=== PATIENT | female | born 1970 | race Two or more races ===

== ENCOUNTER → 2022-04-01 | Emergency (ER) | payer OTHER ==
[~2022-04-01] VITALS: Ht 167.6 cm; Wt 95.3 kg
[~2022-04-01] MED LIST: CYCL5TAB PO; HYDR-4209 PO; HYDROCODONE/APAP 5/325MG TABLET ONE; HYDROCODONE/APAP 5/325MG TABLET PO ONE; IBUP-1955 PO; IBUPROFEN 600 MG TABLET ONE; IBUPROFEN 600 MG TABLET PO ONE
--- NOTE | 2022-04-01 12:43 | NUR ---
Atif bandage applied to affected are. Extensive ACI given. Home w/family NAD. Patient discharged to home in stable condition. Written and verbal after care instructions given. Patient verbalizes understanding of instruction.
[2022-04-01 12:44] VITALS: BP 120/75
== END | disposition home or self-care (01) ==
LOC: ER 10:40
DX: S83.92XA Sprain of unspecified site of left knee, initial encounter (principal); R07.89 Other chest pain; V43.52XA Car driver injured in collision with other type car in traffic accident, initial encounter; Y93.89 Activity, other specified; Y92.411 Interstate highway as the place of occurrence of the external cause; Y99.8 Other external cause status
CPT/HCPCS: 71045-TC; 73564-TC